=== PATIENT | male | born 1980 | race Caucasian/White ===

== ENCOUNTER → 2016-12-11 | Outpatient (CLI) | payer BC ==
[~2016-12-11] MED LIST: GADOBUTROL 10 MMOL/10 ML PFS ONE
== END | disposition home or self-care (01) ==
LOC: CFH 12:46
PROVIDERS: ATTEND Nurse Practitioner Family
DX: M47.896 Other spondylosis, lumbar region (principal); M51.27 Other intervertebral disc displacement, lumbosacral region; M25.552 Pain in left hip
CPT/HCPCS: 72158; 73723; A9585